=== PATIENT | female | born 1955 | race Caucasian/White ===

== ENCOUNTER → 2024-03-30 | Outpatient (CLI) | payer SELFPAY ==
--- NOTE | 2024-03-30 15:24 | US_ITS ---
INDICATION: NODULE EXAMINATION: Ultrasound US Thyroid (eg thyroid, parathyroid, parotid) TECHNIQUE: Pratt scale and color doppler imaging was performed of the thyroid gland. COMPARISON: None. FINDINGS: RIGHT THYROID LOBE: Measures 6 x 3 x 2.8 cm. Homogeneous echotexture with normal vascularity. [Multiple nodules are present: -1.2 cm isoechoic solid and cystic nodule -3.3 cm mostly cystic nodule in the midpole -0.9 cm cystic nodule LEFT THYROID LOBE: Measures 2.2 (0.6 x 0.9 cm. Homogeneous echotexture with normal vascularity. [0.4 cm cystic nodule is present. ISTHMUS: . No thyroid nodules are present. US/Thyroid IMPRESSION: Multinodular goiter: -1.2 cm TI-RADS 3 solid and cystic nodule in the right lobe is mildly suspicious. Recommend follow-up ultrasound in one year. -3.3 cm TI-RADS 3 mostly cystic nodule in the right lobe is mildly suspicious. Recommend follow-up ultrasound in one year. Electronically Signed: Raj Douglass MD at 17:17 EDT ,
== END | disposition home or self-care (01) ==
DX: E04.1 Nontoxic single thyroid nodule (principal)
CPT/HCPCS: 76536